=== PATIENT | male | born 2000 | race Two or more races ===

== ENCOUNTER 2022-08-14 01:17 | Emergency (ER) | payer BC ==
[~2022-08-14] VITALS: Ht 175.3 cm; Wt 75.4 kg
[2022-08-14 02:46] VITALS: BP 126/68
== END 2022-08-14 04:12 | disposition left against medical advice (07) ==
LOC: ER 01:17
DX: R56.9 Unspecified convulsions (principal); Z00.00 Encounter for general adult medical examination without abnormal findings
CPT/HCPCS: 70110